=== PATIENT | male | born 1945 | race Caucasian/White ===

== ENCOUNTER 2018-01-25 15:00 | Outpatient (REF) | payer MEDICARE, OTHER, SELFPAY ==
[2018-01-25 22:09] LABS: Abs Immature Grans 0.01 k/cumm (0.0-0.09); Absolute Basophil Count 0.04 k/cumm (0.0-0.2); Absolute Eosinophil Count 0.29 k/cumm (0.0-0.7); Absolute Lymphocyte Count 1.77 k/cumm (1.2-3.4); Absolute Monocyte Count 0.56 k/cumm (0.11-0.7); Absolute Neutrophil Count 4.26 k/cumm (1.2-6.7); Basophils % 0.6; Eosinophils % 4.2; HCT 43.4 % (40.0-50.0); HGB 14.9 g/dL (13.5-17.5); Immature Grans % 0.1; Lymphocytes % 25.5; Mean Corp. HGB Concentration 34.3 g/dL (32.0-36.0); Mean Corpuscular Hemoglobin 30.2 pg (27.0-33.0); Mean Platelet Volume 10.6 fL (8.0-11.0); Monocytes % 8.1; Neutrophils % 61.5; Platelet Count 235 x1000/uL (130-400); RBC 4.93 m/cumm (4.50-6.00); RBC Distribution Width 13.6 % (11.8-14.1); White Blood Cell Count 6.93 k/cumm (4.4-10.8)
[2018-01-25 22:13] LABS: BUN 17 mg/dL (7-18); CREATININE 0.87 mg/dL (0.70-1.30); Calcium 9.2 mg/dL (8.5-10.1); Chloride 105 mmol/L (98-107); Glucose 77 mg/dL (70-100); Sodium 141 mmol/L (136-145)
[2018-01-25 22:21] LABS: Prothrombin Time 9.9 sec (9.3-10.8)
== END 2018-01-25 15:20 ==
LOC: NCHCN 15:00
PROVIDERS: PCP Internal Medicine; Visit Provider Nurse Practitioner Family
DX: I25.10 Atherosclerotic heart disease of native coronary artery without angina pectoris (principal); Z01.818 Encounter for other preprocedural examination
CPT/HCPCS: 80048; 85025; 85610

== ENCOUNTER 2018-05-25 21:35 | Outpatient (REF) | payer MEDICARE, OTHER, SELFPAY ==
[2018-05-29 09:33] LABS: PSA, Screening 0.3 ng/ml (0-6.5)
== END 2018-05-25 21:55 ==
LOC: NCHCN 21:35
PROVIDERS: PCP Internal Medicine; Visit Provider Internal Medicine
DX: Z12.5 Encounter for screening for malignant neoplasm of prostate (principal); N40.0 Benign prostatic hyperplasia without lower urinary tract symptoms
CPT/HCPCS: 84153

== ENCOUNTER 2019-01-01 08:59 | Outpatient (REF) | payer MEDICARE, OTHER, SELFPAY ==
[2019-01-01 21:25] LABS: Calculated LDL 112 mg/dL; Cholesterol 197 mg/dL (50-200); HDL Cholesterol 56 mg/dL (40-60); Triglyceride 145 mg/dL (30-150)
== END 2019-01-01 09:19 ==
LOC: NCHCN 08:59
PROVIDERS: PCP Internal Medicine; Visit Provider Internal Medicine
DX: I25.10 Atherosclerotic heart disease of native coronary artery without angina pectoris (principal); Z95.828 Presence of other vascular implants and grafts
CPT/HCPCS: 80061

== ENCOUNTER 2019-01-04 11:44 | Outpatient (REF) | payer MEDICARE, OTHER, SELFPAY ==
[2019-01-04 21:31] LABS: BUN 17 mg/dL (7-18); CREATININE 0.87 mg/dL (0.70-1.30); Chloride 106 mmol/L (98-107); Glucose 96 mg/dL (70-100); Potassium 4.3 mmol/L (3.5-5.1); Sodium 141 mmol/L (136-145)
== END 2019-01-04 12:04 ==
LOC: NCHCN 11:44
PROVIDERS: PCP Internal Medicine; Visit Provider Internal Medicine
DX: I10 Essential (primary) hypertension (principal)
CPT/HCPCS: 80048

== ENCOUNTER 2019-06-21 21:00 | Outpatient (REF) | payer MEDICARE, OTHER, SELFPAY ==
[2019-06-18 22:26] LABS: Hemoglobin A1C 5.7 % (3.8-5.6)
[2019-06-18 22:45] LABS: Vitamin B12 405 pg/mL (193-986)
[2019-06-19 17:02] LABS: Rheumatoid Factor <8.6 IU/mL (<12.0)
[2019-06-20 09:37] LABS: Kappa Free Light Chain 1.57 mg/dL (0.33-1.94); Lambda Free Light Chain 0.89 mg/dL (0.57-2.63)
[2019-06-20 15:21] LABS: Albumin, Urine % 18.8 % ((See Note)); Globulins, Urine % 81.2 %; Immunotyping, Urine (See Note); Total Protein Urine 7 mg/dL (See Note)
[2019-06-20 15:27] LABS: Albumin 65.5 % (55.8-66.1); Immunotyping, Serum (See Note); Total Protein 7.2 g/dL (6.3-8.2)
[2019-06-21 12:35] LABS: Sm (Smith) Ab, IgG 1.8 Units (<20.0)
[2019-06-22 00:34] LABS: Pyridoxal 5-Phosphate (PLP), P 12 mcg/L (5-50)
[2019-06-26 15:03] LABS: RNP Ab, IgG 1.8 Units (<20.0); SS-A Antibody 1.2 Units (<20.0); SS-B (La) Ab, IgG 3.9 Units (<20.0); Sm (Smith) Ab, IgG 1.9 Units (<20.0)
[2019-06-27 01:27] LABS: Thiamine (Vitamin B1), WB 154 nmol/L (70-180)
== END 2019-06-21 21:20 ==
LOC: NCHCN 21:00
PROVIDERS: PCP Internal Medicine; Visit Provider Internal Medicine
DX: G62.9 Polyneuropathy, unspecified (principal)
CPT/HCPCS: 84156; 84166; 86335; 82607; 83036; 83883; 84155; 84165; 84207; 84425; 86235; 86320; 86431

== ENCOUNTER 2020-01-07 09:37 | Outpatient (REF) | payer MEDICARE, OTHER, SELFPAY ==
[2020-01-07 22:18] LABS: Hemoglobin A1C 5.4 % (<5.7)
[2020-01-07 22:29] LABS: ALT 46 U/L (16-63); AST 30 U/L (15-37); Albumin 4.8 g/dL (3.4-5.0); Alkaline Phosphatase 55 U/L (46-116); BUN 15 mg/dL (7-18); Bilirubin, Total 0.9 mg/dL (0.2-1.0); CREATININE 0.93 mg/dL (0.70-1.30); Calcium 9.4 mg/dL (8.5-10.1); Calculated LDL 106 mg/dL (<100); Chloride 104 mmol/L (98-107); Cholesterol 185 mg/dL (<200); Glucose 109 mg/dL (74-106); HDL Cholesterol 61 mg/dL (40-60); Potassium 4.5 mmol/L (3.5-5.1); Sodium 141 mmol/L (136-145); Total Protein 7.6 g/dL (6.4-8.2); Triglyceride 91 mg/dL (<150)
[2020-01-09 09:48] LABS: C3 Complement 132 mg/dL (81-157); C4 Complement 26 mg/dL (13-39)
[2020-01-09 10:03] LABS: HIV-1/2 Ag & Ab Screen Negative (Negative)
[2020-01-09 10:45] LABS: Hepatitis C Ab w Rflx HCV PCR Negative (Negative)
[2020-01-09 11:53] LABS: Lyme Ab w Rflx to Lyme Confirm Negative (Negative)
[2020-01-09 16:15] LABS: ANCA Interpretation Negative (Negative)
[2020-01-10 12:14] LABS: HBc IgM Ab, S Negative (Negative)
[2020-01-10 12:43] LABS: Tissue Transglutaminase Ab IgA <1.2 U/mL
== END 2020-01-07 09:57 ==
LOC: NCHCN 09:37
PROVIDERS: PCP Internal Medicine; Visit Provider Internal Medicine
DX: R73.03 Prediabetes (principal); I25.10 Atherosclerotic heart disease of native coronary artery without angina pectoris; G62.9 Polyneuropathy, unspecified; Z11.4 Encounter for screening for human immunodeficiency virus [HIV]; Z11.59 Encounter for screening for other viral diseases
CPT/HCPCS: 80053; 80061; 86255; 86803; 87389; 83036; 83516; 86160; 86618; 86705

== ENCOUNTER 2021-01-05 10:09 | Outpatient (REF) | payer MEDICARE, OTHER, SELFPAY ==
[2021-01-05 14:58] LABS: Anion Gap 10.8 mmol/L (3-11); BUN 13 mg/dL (7-18); CO2 25.2 mmol/L (21.0-32.0); Calculated LDL 105 mg/dL (<100); Chloride 106 mmol/L (98-107); Cholesterol 183 mg/dL (<200); Glucose 115 mg/dL (74-106); HDL Cholesterol 61 mg/dL (40-60); Potassium 4.2 mmol/L (3.5-5.1); Sodium 142 mmol/L (136-145); Triglyceride 88 mg/dL (<150)
[2021-01-05 15:02] LABS: Hemoglobin A1C 5.6 % (<5.7)
== END 2021-01-05 10:10 | disposition home or self-care (01) ==
LOC: NCHCN 10:09
PROVIDERS: PCP Internal Medicine; Referring Provider Internal Medicine; Visit Provider Internal Medicine
DX: I25.10 Atherosclerotic heart disease of native coronary artery without angina pectoris (principal); I10 Essential (primary) hypertension; R73.03 Prediabetes
CPT/HCPCS: 80048; 80061; 83036

== ENCOUNTER 2021-03-12 17:17 | Outpatient (REF) | payer MEDICARE, OTHER, SELFPAY ==
[2021-03-12 21:06] LABS: Abs Immature Grans 0.01 10^3/uL (0.0-0.06); Absolute Basophil Count 0.05 10^3/uL (0.0-0.2); Absolute Eosinophil Count 0.21 10^3/uL (0.0-0.7); Absolute Lymphocyte Count 2.01 10^3/uL (1.2-3.4); Absolute Neutrophil Count 3.89 10^3/uL (1.2-6.7); Basophils % 0.7; Eosinophils % 3.1; HCT 43.2 % (40.0-50.0); HGB 14.6 g/dL (13.5-17.5); Immature Grans % 0.1; Lymphocytes % 29.7; MCH 29.9 pg (27.0-33.0); MCHC 33.8 % (32.0-36.0); MCV 88.3 fL (80-95); MPV 10.6 fL (8.0-11.0); Monocytes % 8.9; Neutrophils % 57.5; Nucleated RBC 0 %; Platelet Count 199 10^3/uL (130-400); RBC 4.89 10^6/uL (4.36-5.78); RDW 12.8 % (11.8-14.1); RDW-SD 41.5 fL; WBC 6.77 10^3/uL (4.4-10.8)
[2021-03-12 21:31] LABS: TSH (W/Ref FT4) 1.31 uIU/mL (0.36-3.74)
== END 2021-03-12 17:18 | disposition home or self-care (01) ==
LOC: NCHCN 17:17
PROVIDERS: PCP Internal Medicine; Visit Provider Internal Medicine
DX: R19.7 Diarrhea, unspecified (principal); I10 Essential (primary) hypertension; E55.9 Vitamin D deficiency, unspecified
CPT/HCPCS: 82306; 84443; 85025

== ENCOUNTER 2021-03-16 12:50 | Outpatient (REF) | payer MEDICARE, OTHER, SELFPAY | END 2021-03-16 12:51 | disposition home or self-care (01) | LOC: NCHCN 12:50 | PROVIDERS: PCP Internal Medicine; Visit Provider Internal Medicine | DX: R19.7 Diarrhea, unspecified (principal) | CPT/HCPCS: 87329 ==

== ENCOUNTER 2021-07-24 13:41 | Outpatient (REF) | payer MEDICARE, OTHER, SELFPAY ==
[2021-07-26 14:45] LABS: COVID-19 RT-PCR UVMMC Result Negative (Negative)
== END 2021-07-24 13:42 | disposition home or self-care (01) ==
LOC: NCHCN 13:41
PROVIDERS: PCP Internal Medicine; Visit Provider Nurse Practitioner Family
DX: Z20.822 Contact with and (suspected) exposure to COVID-19 (principal); R05.8 Other specified cough
CPT/HCPCS: U0003

== ENCOUNTER 2022-01-13 18:18 | Outpatient (REF) | payer MEDICARE, OTHER, SELFPAY ==
[2022-01-13 17:47] LABS: ALT 46 U/L (16-63); AST 29 U/L (15-37); Albumin 4.4 g/dL (3.4-5.0); Alkaline Phosphatase 62 U/L (46-116); Anion Gap 8.7 mmol/L (3-11); BUN 10 mg/dL (7-18); Bilirubin, Total 0.9 mg/dL (0.2-1.0); CO2 28.3 mmol/L (21.0-32.0); CREATININE 0.9 mg/dL (0.70-1.30); Calcium 9.5 mg/dL (8.5-10.1); Calculated LDL 74 mg/dL (<100); Chloride 105 mmol/L (98-107); Cholesterol 143 mg/dL (<200); Estimated GFR 87.96 (mL/min/1.73m2); Glucose 99 mg/dL (74-106); HDL Cholesterol 54 mg/dL (40-60); Potassium 4.3 mmol/L (3.5-5.1); Sodium 142 mmol/L (136-145); Total Protein 7.3 g/dL (6.4-8.2); Triglyceride 75 mg/dL (<150)
[2022-01-13 17:49] LABS: Hemoglobin A1C 5.6 % (<5.7)
== END 2022-01-13 18:19 | disposition home or self-care (01) ==
LOC: NCHCN 18:18
PROVIDERS: PCP Internal Medicine; Visit Provider Internal Medicine
DX: I25.10 Atherosclerotic heart disease of native coronary artery without angina pectoris (principal); R73.03 Prediabetes
CPT/HCPCS: 80053; 80061; 83036

== ENCOUNTER 2022-01-20 14:49 | Outpatient (REF) | payer MEDICARE, OTHER, SELFPAY ==
[2022-01-21 05:41] LABS: Vitamin D 25 Total 35.3 ng/mL (30-100)
[2022-01-21 19:11] LABS: PSA, Screening 0.3 ng/mL (<=6.5)
== END 2022-01-20 14:50 | disposition home or self-care (01) ==
LOC: NCHCN 14:49
PROVIDERS: PCP Internal Medicine; Visit Provider Internal Medicine
DX: E55.9 Vitamin D deficiency, unspecified (principal); Z87.891 Personal history of nicotine dependence; Z12.5 Encounter for screening for malignant neoplasm of prostate
CPT/HCPCS: 82306; 84153

== ENCOUNTER 2022-09-29 12:57 | Outpatient (REF) | payer MEDICARE, OTHER, SELFPAY ==
[2022-09-29 15:36] LABS: Vitamin B12 312 pg/mL (193-986)
== END 2022-09-29 12:58 | disposition home or self-care (01) ==
LOC: NCHCN 12:57
PROVIDERS: PCP Internal Medicine; Visit Provider Internal Medicine
DX: R27.9 Unspecified lack of coordination (principal)
CPT/HCPCS: 82607

== ENCOUNTER 2023-01-17 12:23 | Outpatient (REF) | payer MEDICARE, OTHER, SELFPAY ==
[2023-01-17 16:09] LABS: Anion Gap 6.6 mmol/L (3-11); BUN 16 mg/dL (7-18); CO2 26.4 mmol/L (21.0-32.0); Calcium 9.3 mg/dL (8.5-10.1); Calculated LDL 71 mg/dL (<100); Chloride 106 mmol/L (98-107); Cholesterol 138 mg/dL (<200); Estimated GFR 77.04 (mL/min/1.73m2); Glucose 103 mg/dL (74-106); HDL Cholesterol 55 mg/dL (40-60); Potassium 4.1 mmol/L (3.5-5.1); Sodium 139 mmol/L (136-145); Triglyceride 63 mg/dL (<150)
[2023-01-17 16:13] LABS: Hemoglobin A1C 5.4 % (<5.7)
== END 2023-01-17 12:24 | disposition home or self-care (01) ==
LOC: NCHCN 12:23
PROVIDERS: PCP Internal Medicine; Visit Provider Internal Medicine
DX: E78.5 Hyperlipidemia, unspecified (principal); R73.03 Prediabetes
CPT/HCPCS: 80048; 80061; 83036

== ENCOUNTER 2024-01-27 15:54 | Outpatient (REF) | payer MEDICARE, OTHER, SELFPAY ==
--- OUTSIDE RECORDS SUMMARY | 2024-01-27 15:56 | XMS_ITS ---
Author Organization Unknown Address [address] [place] [address] [phone] Phone Care Team Providers Care Fabric Worker Foreman Name Role Phone TIANA Meng Attending Unavailable Results [facility] - Junior ect Date/Time: 06/20/2021 10:50 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 If you have left the hospital and have any questions, please contact your primary care physician. Reason For Referral No Data Found Problems Problem Start Date Resolved Date Status Code Code System HIGH CHOLESTEROL active 10427780 SNO MED-CT NEUROPATHY active 694787178 SNOMED-CT STROKE 03/15/2022 resolved 485486434 SNOMED-CT Allergies and Adverse Reactions Allergy Substance Reaction Severity Start Date Concern Status Co de Code System PCN (penicillin) Active 8230520 SNOMED- CT Plan of Treatment MRI L SPINE W/O CONTRAST 12/21/2023 MRI T SPINE W/O CONTRAST 10/12/2022 MRI C SPINE W/O CONTRAST 10/12/2022 SYMPTOMS 06/20/2021 Encounters Encounter Diagnosis Start Date Code Code Sys tem Exposure to SARS-CoV-2 06/20/2021 022438829 SNOME D-CT Personal Care Team Section Performer Name Performer Role Active Date Inactive Da te
--- OUTSIDE RECORDS SUMMARY | 2024-01-27 15:56 | XMS_ITS ---
Author Organization Unknown Address [address] [place] [address] [phone] Phone Care Team Providers Care Punch Press Setter Name Role Phone ALANNAHALINE GLOIRA Lakhwinder Attending Unavailable Social History Type Status Start Date End Date Code Code Syst em Smoking History Former smoker 7954221 SNOMED CT Sex Male Assessment You had [...] Status Code Code System HIGH CHOLESTEROL active 26352369 SNO MED-CT NEUROPATHY active 869624776 SNOMED-CT STROKE 03/15/2022 resolved 522044867 SNOMED-CT Allergies and Adverse Reactions Allergy Substance Reaction Severity Start Date Concern Status Co de Code System PCN (penicillin) Active 5275977 SNOMED- CT Plan of Treatment MRI L SPINE W/O CONTRAST 12/21/2023 MRI T SPINE W/O CONTRAST 10/12/2022 MRI C SPINE W/O CONTRAST 10/12/2022 SYMPTOMS 06/20/2021 Encounters Encounter Diagnosis Start Date Code Code Sys tem Aftercare 09/03/2021 353945160 SNOMED-CT Personal Care Team Section Performer Name Performer Role Active Date Inactive Da te
--- OUTSIDE RECORDS SUMMARY | 2024-01-27 15:56 | XMS_ITS ---
Author Organization Unknown Address [address] [place] [address] [phone] Phone Care Team Providers Care Boat Hand Name Role Phone TIANA LAMBERT MD Attending Unavailable YONNY GLORIA Primary Unavailable Results ALYSSA JOLANTAID VARGASX - Colle ct Date/Time: 01/02/2021 11:53 [facility] ID: [id number] [address] [place] [address], [address] LOINC: 79396-5 Test Value Unit Reference Range Code Code System Flag SOURCE= Anterior nasal Tier- TRAVEL SARS COV2 RNA: NEGATIVE REFERENCE RAN GE: NEGAT 04113-6 LOINC Social History Type Status Start Date End Date Code Code Syst em Smoking History Former smoker 0758227 SNOMED CT Sex Male Assessment You had [...] Status Code Code System HIGH CHOLESTEROL active 22575637 SNO MED-CT NEUROPATHY active 378882646 SNOMED-CT STROKE 03/15/2022 resolved 363968539 SNOMED-CT Allergies and Adverse Reactions Allergy Substance Reaction Severity Start Date Concern Status Co de Code System PCN (penicillin) Active 2727671 SNOMED- CT Plan of Treatment MRI L SPINE W/O CONTRAST 12/21/2023 MRI T SPINE W/O CONTRAST 10/12/2022 MRI C SPINE W/O CONTRAST 10/12/2022 SYMPTOMS 06/20/2021 Encounters Encounter Diagnosis Start Date Code Code Sys tem CONTACT WITH AND SUSPECTED EXPOSURE TO COVID-19 2020 SNOMED-CT Personal Care Team Section Performer Name Performer Role Active Date Inactive Da te
--- OUTSIDE RECORDS SUMMARY | 2024-01-27 15:57 | XMS_ITS ---
Author Organization Unknown Address [address] [place] [address] [phone] Phone Care Team Providers Care Welcome Wagon Host/Hostess Name Role Phone RAFIA Ríos Attending Unavailable Results MR C AND T SPINE WO CONTRAST * - Completed: 10/12/2022 12:47 LOINC: [facility] [place], [place] [address] PACS CERTIFIED PEDIATRIC NURSE PRACTITIONER REPORT Patient Name: ANGIE MCKEON MRN: Sex: : Age: [id number] M 1945 [id number] Account: Accession: Admit: StayType: [id number] 10/12/2022 CLINIC Ordered: Order ID: Submitted: Ordering Provider: 10/12/2022 10:27 [id number] KT JUANI BLANCAS Completed: Technologist: Resulted: 10/12/2022 12:47 HTP 10/12/2022 13:23 Study Description: MR C AND T SPINE WO CONTRAST Study Reason: RT FOOT DROP TECHNIQUE: Multiplanar multisequence MRI of the cervical spine was performed without intravenous contrast. COMPARISON: No exams were available for comparison FINDINGS: MRI cervical spine: CERVICOMEDULLARY JUNCTION: Intact with no evidence of cerebellar tonsillar ectopia. No obvious abnormality of the odontoid process. No evidence of Chiari 1 malformation. CERVICAL SPINAL CORD: There is no abnormal signal in the cervical spinal cord and no evidence of focal cord atrophy nor focal cord swelling. OSSEOUS:There are no cervical fractures evident. No significant osseous lesions in the cervical vertebrae. INDIVIDUAL LEVELS: C2-3: No disc herniation nor central canal stenosis. No foraminal stenosis. Facet degenerative changes. C3-4: No disc herniation nor central canal stenosis. Facet degenerative changes. No foraminal stenosis. C4-5: No disc herniation nor central canal stenosis. Facet degenerative changes. No foraminal stenosis C5-6: Mild loss of height. Small circumferential endplate osteophytes which efface the anterior CSF space. No impingement on the cord. Facet degenerative changes. Combination of degenerative changes causing left neural foraminal narrowing. C6-7: Mild loss of disc height. Circumferential ventrally projecting endplate osteophytes. Facet degenerative changes. Effacement of the anterior CSF space but no impingement on the cord. Bilateral neuroforaminal narrowing. C7-T1: No disc herniation nor central canal stenosis. facet arthropathy. Bilateral foraminal stenosis. IMPRESSION: Degenerative disc changes and facet degenerative changes from C 5 6 through C7-T1 causing neural foraminal narrowing. No abnormal Cord signal. No disc herniation.. [MRI Thoracic Spine: The thoracic spinal cord signal is normal throughout. No epidural collection. No compression fracture or suspicious bony lesion. Endplate osteophytes projecting anteriorly in the mid thoracic levels. No evidence of disc herniation. No neural foraminal narrowing. Facet osteophytes are present bilaterally, left greater than right at the T11-12 level, causing mild encroachment into the central canal but no impingement on the cord. No significant neuroforaminal narrowing. Impression: Facet osteophytes cause mild encroachment into the central canal at T11-12 but do not cause direct cord impingement.. Report Digitally Signed by Sirena London on 10/12/2022 01:23 PM EDT Social History Type Status Start Date End Date Code Code Syst em Smoking History Former smoker 2946002 SNOMED CT Sex Male Assessment You had [...] Status Code Code System HIGH CHOLESTEROL active 29471051 SNO MED-CT NEUROPATHY active 017992616 SNOMED-CT STROKE 03/15/2022 resolved 076439344 SNOMED-CT Allergies and Adverse Reactions Allergy Substance Reaction Severity Start Date Concern Status Co de Code System PCN (penicillin) Active 6196233 SNOMED- CT Plan of Treatment MRI L SPINE W/O CONTRAST 12/21/2023 MRI T SPINE W/O CONTRAST 10/12/2022 MRI C SPINE W/O CONTRAST 10/12/2022 SYMPTOMS 06/20/2021 Encounters Encounter Diagnosis Start Date Code Code Sys tem Atherosclerotic heart diseas e of [place] coronary artery without angina pectoris 10/12/2022 SNOMED-CT Personal Care Team Section Performer Name Performer Role Active Date Inactive Jr stack
--- OUTSIDE RECORDS SUMMARY | 2024-01-27 15:57 | XMS_ITS ---
Author Organization Unknown Address [address] [place] [address] [phone] Phone Care Team Providers Care Road Oiler Name Role Phone ALANNAHALINE GLORIA Lakhwinder Attending Unavailable Social History Type Status Start Date End Date Code Code Syst em Smoking History Former smoker 6926126 SNOMED CT Sex Male Assessment You had [...] Status Code Code System HIGH CHOLESTEROL active 28624760 SNO MED-CT NEUROPATHY active 579833507 SNOMED-CT STROKE 03/15/2022 resolved 335946657 SNOMED-CT Allergies and Adverse Reactions Allergy Substance Reaction Severity Start Date Concern Status Co de Code System PCN (penicillin) Active 8851966 SNOMED- CT Plan of Treatment MRI L SPINE W/O CONTRAST 12/21/2023 MRI T SPINE W/O CONTRAST 10/12/2022 MRI C SPINE W/O CONTRAST 10/12/2022 SYMPTOMS 06/20/2021 Encounters Encounter Diagnosis Start Date Code Code Sys tem Encounter for other specified aftercare 08/05/2022 SNOMED-CT Personal Care Team Section Performer Name Performer Role Active Date Inactive Da te
--- OUTSIDE RECORDS SUMMARY | 2024-01-27 15:57 | XMS_ITS ---
Author Organization Unknown Address [address] [place] [address] [phone] Phone Care Team Providers Care Security Developer Name Role Phone GISSELL NORIEGA Registered Nurse Unavailable JEAN Manuel Attending Unavailable TENNILLE LANDON Unavailable UNLISTED PROVIDER - REQUESTED Xhandoff Un available Results XR CHEST 2V PA AND LATERAL - Completed: 03/15/2022 12:34 LOINC: [facility] [place], [place] [address] PACS GRAIN THRESHER REPORT Patient Name: ANGIE MCKEON MRN: Sex: : Age: [id number] M 1945 [id number] Account: Accession: Admit: StayType: [id number] 03/15/2022 E/R Ordered: Order ID: Submitted: Ordering Provider: 03/15/2022 12:21 [id number] BREANNE STANTON Completed: Technologist: Resulted: 03/15/2022 12:34 BMM 03/15/2022 12:37 Study Description: XR CHEST 2V PA AND LATERAL Study Reason: Trauma Technique: 2D digital imaging was performed of the chest. 2 images were obtained. Comparison: None. FINDINGS: MEDIASTINUM: Normal. HEART: Normal. PULMONARY VASCULATURE: Normal. LUNGS: Clear. PLEURAL SPACE: No pleural effusion or pneumothorax. BONE:Within normal limits for the patient's age. OTHER FINDINGS:Normal. IMPRESSION: No acute pulmonary findings. Report Digitally Signed by Anselmo Ballard on 03/15/2022 12:37 PM EST Social History Type Status Start Date End Date Code Code Syst em Smoking History Former smoker 3318271 SNOMED CT Sex Male Vital Signs Vital Sign Value Unit Ames Value Ames Unit Date/Time Recent/Initial? Code Code System Body Mass Index 29.35 kg/m2 03/15/2022 11:54 Most Recent 62053 -5 LOINC Body Mass Index 27.20 kg/m2 03/15/2022 11:39 Initial 35233 -5 LOINC Systolic Blood Pressure 136 mm[Hg] 03/15/2022 13:03 Most Recent 8480- 6 LOINC Diastolic Blood Pressure 85 mm[Hg] 03/15/2022 13:03 Most Recent 8462- 4 LOINC Systolic Blood Pressure 152 mm[Hg] 03/15/2022 11:39 Initial 8480- 6 LOINC Diastolic Blood Pressure 108 mm[Hg] 03/15/2022 11:39 Initial 8462- 4 LOINC Body Surface Area 2.05 m2 03/15/2022 11:54 Most Recent 3140- 1 LOINC Body Surface Area 2.10 m2 03/15/2022 11:39 Initial 3140- 1 LOINC Height 172.720 0 cm 68.00 in 03/15/2022 11:54 Most Recent 8302- 2 LOINC Height 180.340 0 cm 71.00 in 03/15/2022 11:39 Initial 8302- 2 LOINC O2 Saturation 100 % 2021 13:03 Most Recent 57912 -5 LOINC O2 Saturation 100 % 2021 11:39 Initial 61314 -5 LOINC Pulse 68.0 /min 03/15/2022 13:03 Most Recent 8867- 4 LOINC Pulse 86.0 /min 03/15/2022 11:39 Initial 8867- 4 LOINC Respiration 16 /min 03/15/20 13:03 Most Recent 9279- 1 LOINC Respiration 18 /min 03/15/20 11:39 Initial 9279- 1 LOINC Temperature 35.3 Martha 95.5 F 03/15/20 13:03 Most Recent 8310- 5 LOINC Temperature 35.8 Martha 96.4 F 03/15/20 11:39 Initial 8310- 5 LOINC Weight 87.54 kg 193.00 lbs 03/15/2022 11:54 Most Recent 31872 -7 LOINC Weight 88.45 kg 195.00 lbs 03/15/2022 11:39 Initial 87071 -7 LOINC Assessment 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 If you have left the hospital and have any questions, please contact your primary care physician. Reason For Referral No Data Found Problems Problem Start Date Resolved Date Status Code Code System HIGH CHOLESTEROL active 89610077 SNO MED-CT NEUROPATHY active 662979020 SNOMED-CT STROKE 03/15/2022 resolved 580094657 SNOMED-CT Allergies and Adverse Reactions Allergy Substance Reaction Severity Start Date Concern Status Co de Code System PCN (penicillin) Active 6973745 SNOMED- CT Plan of Treatment MRI L SPINE W/O CONTRAST 12/21/2023 MRI T SPINE W/O CONTRAST 10/12/2022 MRI C SPINE W/O CONTRAST 10/12/2022 SYMPTOMS 06/20/2021 Encounters Encounter Diagnosis Start Date Code Code Sys tem Strain of unspecified muscle , fascia and tendon at shoulder and upper arm level, left arm, initial encounter 03/15/2022 SNOMED-CT Personal Care Team Section Performer Name Performer Role Active Date Inactive Da seda
--- OUTSIDE RECORDS SUMMARY | 2024-01-27 15:57 | XMS_ITS ---
Author Organization Unknown Address [address] [place] [address] [phone] Phone Care Team Providers Care Cyber Security Analyst Name Role Phone ALANNAHALINE GLORIA Lakhwinder Attending Unavailable Social History Type Status Start Date End Date Code Code Syst em Smoking History Former smoker 9805028 SNOMED CT Sex Male Assessment You had [...] Status Code Code System HIGH CHOLESTEROL active 94655288 SNO MED-CT NEUROPATHY active 586382944 SNOMED-CT STROKE 03/15/2022 resolved 339982320 SNOMED-CT Allergies and Adverse Reactions Allergy Substance Reaction Severity Start Date Concern Status Co de Code System PCN (penicillin) Active 9204495 SNOMED- CT Plan of Treatment MRI L SPINE W/O CONTRAST 12/21/2023 MRI T SPINE W/O CONTRAST 10/12/2022 MRI C SPINE W/O CONTRAST 10/12/2022 SYMPTOMS 06/20/2021 Encounters Encounter Diagnosis Start Date Code Code Sys tem Encounter for other specified aftercare 11/05/2021 SNOMED-CT Personal Care Team Section Performer Name Performer Role Active Date Inactive Da te
--- OUTSIDE RECORDS SUMMARY | 2024-01-27 15:58 | XMS_ITS ---
Author Organization Unknown Address [address] [place] [address] [phone] Phone Care Team Providers Care Cardiovascular Radiologic Technologist Name Role Phone KRYS CANTU Attending Unavailable YONNY Keane Primary Unavailable Results MR LS SPINE WO CONTRAST - Co mpleted: 12/21/2023 13:53 LOINC: [facility] [place], [place] [address] RADIOLOGY WARPER FIXER REPORT Patient Name: ANGIE MCKEON MRN: Sex: : Age: [id number] M 1945 [id number] Account: Accession: Admit: StayType: [id number] 12/21/2023 O Ordered: Order ID: Submitted: Ordering Provider: 12/21/2023 12:47 [id number] KT PEPE MARCANO Completed: Technologist: Resulted: 12/21/2023 12:53 DL 12/22/2023 12:02 EXAMINATION: MR LS SPINE WO CONTRAST CLINICAL HISTORY: REASON: FOOT DROP, RIGHT FOOT ADD'L INFO: NO ENTRY TECHNIQUE: MRI of the lumbar spine performed without intravenous contrast administration. COMPARISON: None FINDINGS: At the T11-T12, there is disc bulge, possibly with a superimposed shallow right paracentral disc protrusion present. Some focal thickening of ligamenta flava may be present. We do not have axial images at this level, but there is a suggestion of effacement of the anterior and posterior subarachnoid space here, suggesting at least a mild spinal stenosis. At T12-L1 and L1-L2, no quantifiable epidural disc disease is seen. No spinal stenosis or foraminal encroachment seen. There is facet joint osteophytes of mild severity at these levels. At L2-L3, no herniation or significant bulge is seen. Bony spinal canal normally patent. There is minimal compromise of the caudal neural foramina by disc bulge, perineural fat generous but the exiting L2 nerve roots. Mild facet joint osteophytes occurs at this level. At L3-L4, minimal disc bulge occurs resulting in slight flattening of the ventral thecal sac. No spinal stenosis seen. The neural foramina are compromised by combination of the severe hypertrophic facet joint osteoarthritic changes and the disc bulge, with effacement of perineural fat without compression of the exiting L3 nerve roots. At characterize the foraminal encroachment as a moderate to severe. At L4-L5, there is a grade 1 degenerative anterolisthesis of L4 on L5 of about 3 to 4 mm.. There is a severe hypertrophic facet joint osteoarthritis seen bilaterally, more so at the right side, where there is also a pseudarthrosis between the superior aspect of superior dictating facet of L5, and the inferior aspect of the L4 pedicle. There is compromise of the subarticular recesses the, and severe bilateral foraminal encroachment with effacement of perineural fat and compression of the exiting L4 nerve roots bilaterally. At L5-S1, there is severe hypertrophic facet joint osteoarthritis. There is a grade 1 degenerative anterolisthesis of the L5 on S1 of about the 4 mm. The the bony spinal canal remains generous, with no spinal stenosis seen. There is severe bilateral foraminal encroachment, however, with effacement of perineural fat and compression of the exiting L5 nerve roots by the rolled annulus inferiorly, the hypertrophic facet joint changes posteriorly, and the pedicle superiorly. Bone marrow signal is unremarkable. The conus is unremarkable. There is atrophy of paraspinal soft tissues including the multifidus, most pronounced at the lumbosacral junction. IMPRESSION: Multilevel facet joint osteoarthritic changes most pronounced at L4-L5 and L5-S1 where grade 1 degenerative anterolisthesis occurs without justo spinal stenosis. There is bilateral severe foraminal encroachment at both L4-L5 and L5-S1. There is a mild spinal stenosis at the T11-T12 level. Comment: The following findings are so common in people without low back pain that while we report their presence, they must be interpreted with caution and in context of the clinical situation (Reference- Jarvik Et Al, Spine 2001). Findings: (Prevalence in patients without low back pain), disc degeneration (decreased T2 signal, height loss, bulge) (91%), disc T2-signal loss (83%), disc height loss (56%), disc bulge (64%), disc protrusion (32%), annular fissure (38%). Thank you for letting us participate in the care of this patient. If you are a health care provider and have any questions regarding this report, please contact the number below. For patients who have questions please contact the health care information associate that requested your imaging first. Social History Type Status Start Date End Date Code Code Syst em Smoking History Former smoker 0997568 SNOMED CT Sex Male Assessment You had [...] Status Code Code System HIGH CHOLESTEROL active 91638741 SNO MED-CT NEUROPATHY active 164843563 SNOMED-CT STROKE 03/15/2022 resolved 918098419 SNOMED-CT Allergies and Adverse Reactions Allergy Substance Reaction Severity Start Date Concern Status Co de Code System PCN (penicillin) Active 2441637 SNOMED- CT Plan of Treatment MRI L SPINE W/O CONTRAST 12/21/2023 MRI T SPINE W/O CONTRAST 10/12/2022 MRI C SPINE W/O CONTRAST 10/12/2022 SYMPTOMS 06/20/2021 Encounters Encounter Diagnosis Start Date Code Code Sys tem Lumbar spondylosis 12/21/2023 928733768 SNOMED-CT Personal Care Team Section Performer Name Performer Role Active Date Inactive Da te
--- OUTSIDE RECORDS SUMMARY | 2024-01-27 15:58 | XMS_ITS ---
Author Organization Unknown Address [address] [place] [address] [phone] Phone Care Team Providers Care Application Support Name Role Phone KRYS CANTU Attending Unavailable YONNY Keane Primary Unavailable Results TSH THYROID STIMULATING HORM ONE* - Collect Date/Time: 12/05/2023 10:09 [facility] ID: [id number] [address] [place] [address], [address] LOINC: 3014-8 Test Value Unit Reference Range Code Code System Flag TSH 0.791 uIU/mL L=0.360 H=3.740 3014-8 LOINC Social History Type Status Start Date End Date Code Code Syst em Smoking History Former smoker 0016703 SNOMED CT Sex Male Assessment You had [...] Status Code Code System HIGH CHOLESTEROL active 50781560 SNO MED-CT NEUROPATHY active 750580555 SNOMED-CT STROKE 03/15/2022 resolved 565334378 SNOMED-CT Allergies and Adverse Reactions Allergy Substance Reaction Severity Start Date Concern Status Co de Code System PCN (penicillin) Active 7466099 SNOMED- CT Plan of Treatment MRI L SPINE W/O CONTRAST 12/21/2023 MRI T SPINE W/O CONTRAST 10/12/2022 MRI C SPINE W/O CONTRAST 10/12/2022 SYMPTOMS 06/20/2021 Encounters Encounter Diagnosis Start Date Code Code Sys tem Fatigue 12/05/2023 02264674 SNOMED-CT Personal Care Team Section Performer Name Performer Role Active Date Inactive Da te
--- OUTSIDE RECORDS SUMMARY | 2024-01-27 15:58 | XMS_ITS ---
Author Organization Unknown Address [address] [place] [address] [phone] Phone Care Team Providers Care Wool Washing Machine Operator Name Role Phone MORATAYA JUNIOR Ríos Attending Unavailable YONNY Keane Primary Unavailable Social History Type Status Start Date End Date Code Code Syst em Smoking History Former smoker 9447824 SNOMED CT Sex Male Assessment You had [...] Status Code Code System HIGH CHOLESTEROL active 16502536 SNO MED-CT NEUROPATHY active 694033372 SNOMED-CT STROKE 03/15/2022 resolved 164203798 SNOMED-CT Allergies and Adverse Reactions Allergy Substance Reaction Severity Start Date Concern Status Co de Code System PCN (penicillin) Active 4886882 SNOMED- CT Plan of Treatment MRI L SPINE W/O CONTRAST 12/21/2023 MRI T SPINE W/O CONTRAST 10/12/2022 MRI C SPINE W/O CONTRAST 10/12/2022 SYMPTOMS 06/20/2021 Encounters Encounter Diagnosis Start Date Code Code Sys tem 10/26/2023 374820673594928 SNOMED-CT Personal Care Team Section Performer Name Performer Role Active Date Inactive Da te
[2024-01-27 21:27] LABS: HGB 15.2 g/dL (13.5-17.5); MCH 30.4 pg (27.0-33.0); MCHC 34.5 % (32.0-36.0); MCV 88 fL (80-95); MPV 10.3 fL (8.0-11.0); Platelet Count 192 10^3/uL (130-400); RDW 13.3 % (11.8-14.1); WBC 6.46 10^3/uL (4.4-10.8)
[2024-01-27 21:50] LABS: ALT 38 U/L (16-63); AST 25 U/L (15-37); Albumin 4.2 g/dL (3.4-5.0); Alkaline Phosphatase 56 U/L (46-116); Anion Gap 9.5 mmol/L (3-11); BUN 13 mg/dL (7-18); Bilirubin, Total 0.89 mg/dL (0.2-1.0); CO2 24.5 mmol/L (21.0-32.0); CREATININE 0.8 mg/dL (0.70-1.30); Calcium 9.4 mg/dL (8.5-10.1); Calculated LDL 87 mg/dL (<100); Chloride 105 mmol/L (98-107); Cholesterol 171 mg/dL (<200); Estimated GFR 90.02 (mL/min/1.73m2); Glucose 91 mg/dL (74-106); HDL Cholesterol 64 mg/dL (40-60); Potassium 4.1 mmol/L (3.5-5.1); Sodium 139 mmol/L (136-145); Total Protein 7.5 g/dL (6.4-8.2); Triglyceride 101 mg/dL (<150)
[2024-01-27 21:52] LABS: Hemoglobin A1C 5.6 % (<5.7)
== END 2024-01-27 15:55 | disposition home or self-care (01) ==
LOC: NCHCN 15:54
PROVIDERS: PCP Internal Medicine; Visit Provider Internal Medicine
DX: Z00.00 Encounter for general adult medical examination without abnormal findings (principal); R73.03 Prediabetes
CPT/HCPCS: 80053; 80061; 85027; 83036

== ENCOUNTER 2025-03-11 11:44 | Outpatient (REF) | payer MEDICARE, OTHER, SELFPAY ==
[2025-03-11 15:24] LABS: HCT 44.8 % (40.0-50.0); HGB 15.0 g/dL (13.5-17.5); MCH 29.9 pg (27.0-33.0); MCHC 33.5 % (32.0-36.0); MCV 89 fL (80-95); MPV 10.1 fL (8.0-11.0); Platelet Count 180 10^3/uL (130-400); RBC 5.01 10^6/uL (4.36-5.78); RDW 13.3 % (11.8-14.1); RDW-SD 43.6 fL; WBC 5.14 10^3/uL (4.4-10.8)
[2025-03-11 15:41] LABS: Hemoglobin A1C 5.5 % (<5.7)
[2025-03-11 15:43] LABS: ALT 30 U/L (10-49); AST 30 U/L (<34); Albumin 4.7 g/dL (3.4-5.0); Alkaline Phosphatase 54 U/L (46-116); Anion Gap 9.1 mmol/L (3-11); BUN 14 mg/dL (9-23); Bilirubin, Total 1.00 mg/dL (0.2-1.2); CO2 26.9 mmol/L (20.0-31.0); Calcium 9.4 mg/dL (8.3-10.6); Chloride 109 mmol/L (98-107); Cholesterol 165 mg/dL (<200); Glucose 100 mg/dL (74-106); HDL Cholesterol 59 mg/dL (>40); Potassium 4.2 mmol/L (3.5-5.1); Sodium 145 mmol/L (136-145); Total Protein 7.2 g/dL (5.7-8.2)
[2025-03-13 14:05] LABS: PSA, Screening 0.5 ng/mL (<=6.5)
== END 2025-03-11 11:45 | disposition home or self-care (01) ==
LOC: NCHCN 11:44
PROVIDERS: PCP Internal Medicine; Visit Provider Internal Medicine
DX: Z12.5 Encounter for screening for malignant neoplasm of prostate (principal); I10 Essential (primary) hypertension; R73.03 Prediabetes
CPT/HCPCS: 80053; 80061; 84153; 85027; 83036